=== PATIENT | female | born 1985 | race Caucasian/White ===

== ENCOUNTER 2020-11-25 13:04 | Observation (INO) | payer MEDICAID, OTHER ==
[~2020-11-25] VITALS: Ht 165.1 cm; Wt 100.0 kg
[~2020-11-25 13:04] MED LIST: NO HOME MEDS
[2020-11-25] MEDS ORDERED: morphine 4 MG/ML inj SYRINge IM ONE (13:55)
[2020-11-25] MEDS ORDERED: morphine 4 MG/ML inj SYRINge IV ONE (14:05)
[2020-11-25] MEDS ORDERED: ondansetron/PF 4mg/2ml inj IV ONE (15:05)
[2020-11-25] MEDS ORDERED: ondansetron/PF 4mg/2ml inj IV PRN (17:20)
[2020-11-25] MEDS ORDERED: diphenhydrAMINE 25mg capsule PO PRN ×2 (17:20)
[2020-11-25] MEDS ORDERED: HYDROmorphone 1 mg/ml syringe IV PRN (17:20)
[2020-11-25] MEDS ORDERED: acetaminophen 325mg tablet PO PRN ×2 (17:20→20:50)
[2020-11-25] MEDS ORDERED: magnesium hydroxide 30ml (MOM) UD suspension PO PRN (17:20)
[2020-11-25] MEDS ORDERED: HYDROmorphone inj. 0.5 MG/0.5 ML DISP.SYRIN IV PRN (17:20)
[2020-11-25] MEDS ORDERED: bisacodyl 10mg suppository rectal RC PRN (17:20)
[2020-11-25] MEDS ORDERED: HYDROcodone/acetaminophen 10/325mg tab PO PRN (17:20)
[2020-11-25 20:48] LABS: BASOPHILS % (AUTO) 0.2 % (0-1); EOSINOPHILS % (AUTO) 0 % (0-6); HEMATOCRIT 40.8 % (35.0-45.0); HEMOGLOBIN 13.4 g/dl (12.0-16.0); LYMPHOCYTES # (AUTO) 1.1 X10'3 (1.1-4.8); LYMPHOCYTES % (AUTO) 8.8 % (21-51); MEAN CORPUSCULAR HEMOGLOBIN 28.7 PG (27.0-31.0); MEAN CORPUSCULAR HGB CONC 32.8 g/dL (33.0-36.5); MEAN CORPUSCULAR VOLUME 87.4 FL (78-98); MEAN PLATELET VOLUME 8.2 FL (7.4-10.4); MONOCYTES # (AUTO) 0.6 X10'3 (0-0.9); MONOCYTES % (AUTO) 4.5 % (2-12); NEUTROPHILS # (AUTO) 11.1 X10'3 (1.8-7.7); NEUTROPHILS % (AUTO) 86.5 % (42-75); PLATELET COUNT 271 X10'3 (140-440); RED BLOOD COUNT 4.67 X10'6 (4.20-5.60); RED CELL DISTRIBUTION WIDTH 12.7 % (11.5-14.5); WHITE BLOOD COUNT 12.9 X10'3 (4.5-11.0)
[2020-11-25 21:01] LABS: ALANINE AMINOTRANSFERASE 19 U/L (12-78); ALBUMIN 3.9 G/DL (3.4-5.0); ALBUMIN/GLOBULIN RATIO 1.1 (1.1-1.5); ALKALINE PHOSPHATASE 61 IU/L (46-116); ANION GAP 8 (8-16); ASPARTATE AMINO TRANSFERASE 12 U/L (10-37); BILIRUBIN,TOTAL 0.7 MG/DL (0.1-1.0); BLOOD UREA NITROGEN 12 MG/DL (7-18); BUN/CREATININE RATIO 16.9 (6.6-38.0); CALCIUM 9.1 MG/DL (8.5-10.1); CHLORIDE 105 MMOL/L (99-107); CREATININE 0.71 MG/DL (0.40-0.90); GLUCOSE 111 MG/DL (70-104); SODIUM 141 MMOL/L (135-145); TOTAL CARBON DIOXIDE 27.6 MMOL/L (24-32); TOTAL PROTEIN 7.4 G/DL (6.4-8.2); eGFR > 90 ML/MIN
[2020-11-25 21:05] VITALS: BP 142/91
--- NOTE | 2020-11-25 21:40 | NUR ---
PATIENT ADMITTED TO ROOM 354C FROM ER FOR FRACTURE OF RIGHT ELBOW. PLACED COMFORTABLE IN BED. VITAL SIGNS TAKEN AND RECORDED.
[2020-11-25] MEDS: potassium cl 20mEq in 1/2 NS 1,000 ML IV SCH (21:54)
[2020-11-25] MEDS: ascorbic acid 500mg tablet PO SCH (22:00)
[2020-11-25] MEDS: sennosides 8.6mg tablet PO SCH (22:00)
[2020-11-26] VITALS (16 sets, daily range): BP systolic 105–148; BP diastolic 62–85
[2020-11-26] MEDS: potassium cl 20mEq in 1/2 NS 1,000 ML IV SCH ×3 (01:20→21:01)
[2020-11-26] MEDS: HYDROcodone/acetaminophen 10/325mg tab PO PRN ×2 (03:33→09:31)
[2020-11-26 06:12] LABS: BASOPHILS % (AUTO) 0.2 % (0-1); EOSINOPHILS % (AUTO) 0.3 % (0-6); HEMATOCRIT 38.4 % (35.0-45.0); HEMOGLOBIN 12.7 g/dl (12.0-16.0); LYMPHOCYTES # (AUTO) 1.6 X10'3 (1.1-4.8); LYMPHOCYTES % (AUTO) 13.7 % (21-51); MEAN CORPUSCULAR HEMOGLOBIN 29.1 PG (27.0-31.0); MEAN CORPUSCULAR HGB CONC 33.2 g/dL (33.0-36.5); MEAN CORPUSCULAR VOLUME 87.8 FL (78-98); MEAN PLATELET VOLUME 8.5 FL (7.4-10.4); MONOCYTES # (AUTO) 0.9 X10'3 (0-0.9); MONOCYTES % (AUTO) 8.1 % (2-12); NEUTROPHILS # (AUTO) 8.9 X10'3 (1.8-7.7); NEUTROPHILS % (AUTO) 77.7 % (42-75); PLATELET COUNT 243 X10'3 (140-440); RED BLOOD COUNT 4.37 X10'6 (4.20-5.60); RED CELL DISTRIBUTION WIDTH 13.1 % (11.5-14.5); WHITE BLOOD COUNT 11.5 X10'3 (4.5-11.0)
--- NOTE | 2020-11-26 06:30 | NUR ---
Problems reprioritized. Patient report given, questions answered & plan of care reviewed with DON TAVARES.
[2020-11-26 06:35] LABS: ALANINE AMINOTRANSFERASE 20 U/L (12-78); ALBUMIN 3.6 G/DL (3.4-5.0); ALBUMIN/GLOBULIN RATIO 1.1 (1.1-1.5); ALKALINE PHOSPHATASE 58 IU/L (46-116); ANION GAP 11 (8-16); ASPARTATE AMINO TRANSFERASE 11 U/L (10-37); BILIRUBIN,TOTAL 0.8 MG/DL (0.1-1.0); BLOOD UREA NITROGEN 9 MG/DL (7-18); BUN/CREATININE RATIO 12.9 (6.6-38.0); CALCIUM 8.8 MG/DL (8.5-10.1); CHLORIDE 105 MMOL/L (99-107); GLUCOSE 102 MG/DL (70-104); POTASSIUM 3.4 MMOL/L (3.5-5.1); SODIUM 142 MMOL/L (135-145); TOTAL CARBON DIOXIDE 26.3 MMOL/L (24-32); TOTAL PROTEIN 6.9 G/DL (6.4-8.2); eGFR > 90 ML/MIN
[2020-11-26 07:14] LABS: URINE HCG NEGATIVE (NEG)
--- NOTE | 2020-11-26 07:36 | NUR ---
I called Dr. Marisela Subramanian if he wants preop antibiotic because patient is going to surgery today, patient has abrasions from fall and the WBC today 11.5. He agreed about patient needing preop antibiotic but he said he will take care of it.
[2020-11-26] MEDS: ascorbic acid 500mg tablet PO SCH ×2 (08:00→21:44)
[2020-11-26] MEDS: multivitamins, therapeutics tablet PO SCH (08:00)
[2020-11-26] MEDS ORDERED: morphine 2 MG/ML inj. syringe IV PRN ×2 (10:50→15:10)
[2020-11-26] MEDS ORDERED: morphine 5 MG/ML injection IV PRN (10:50)
[2020-11-26] MEDS ORDERED: proCHLORperazine 10 MG/2 ml inj IV PRN (15:10)
[2020-11-26] MEDS ORDERED: morphine 4 MG/ML inj SYRINge IV PRN (15:10)
[2020-11-26] MEDS ORDERED: meperidine/PF 25mg/ml syringe IV PRN ×3 (15:10)
[2020-11-26] MEDS ORDERED: ondansetron/PF 4mg/2ml inj IV PRN (15:10)
[2020-11-26] MEDS ORDERED: ringers solution, lacted 1,000 ML IV SCH (15:10)
[2020-11-26] MEDS ORDERED: MIDAZolam 1 MG/ML 5ML VIAL ONE (15:55)
[2020-11-26] MEDS ORDERED: fentaNYL/PF 50MCG/1 ML 2ML syringe ONE (15:55)
[2020-11-26] MEDS ORDERED: ROPIVAcaine 0.5% (5mg/ml) 30ml vial ONE (15:55)
[2020-11-26] MEDS ORDERED: dexamethasone sod phosphate 10mg/ml inj ONE (16:02)
[2020-11-26] MEDS ORDERED: ondansetron/PF 4mg/2ml inj ONE (16:02)
[2020-11-26] MEDS ORDERED: LIDOcaine 1%/PF 5ML 10 MG/ML VIAL ONE (16:02)
[2020-11-26] MEDS ORDERED: sevoflurane 250ml liquid IH ONE (16:02)
[2020-11-26] MEDS ORDERED: propofol 10mg/ml 20ml vial IV ONE (16:02)
[2020-11-26] MEDS ORDERED: ceFAZolin 1000mg inj ONE ×2 (17:40)
--- NOTE | 2020-11-26 18:08 | NUR ---
Received from OR via , accompanied by Anesthesiologist DR MAYO and report given by Anesthesiolgist. AWAKENS TO VOICE. VITALS STABLE. DRESSING/CAST CDI. FINGERS WARM AND PINK. JORDAN PAIN. RUE IN A SIMPLE SLING.
--- NOTE | 2020-11-26 18:29 | NUR ---
Problems reprioritized. Patient report given, questions answered & plan of care reviewed with Maggie TAVARES.
--- NOTE | 2020-11-26 18:35 | NUR ---
Patient in room [facility]. I have received report from DON TAVARES and had the opportunity to ask questions and assume patient care. Addendum: 11/26/20 at 1838 by Zeinab Carroll RN PATIENT STILL IN OR/RECOVERY FOR SCHEDULED ORIF TO RIGHT ELBOW FRACTURE BY DR. MORA. Addendum: 11/26/20 at 1840 by Zeinab Carroll RN WRONG ENTRY
--- NOTE | 2020-11-26 18:52 | NUR ---
RECEIVED REPORT FROM [employer].
--- NOTE | 2020-11-26 18:58 | NUR ---
Report called to receiving nurse. Transferred via BED Belongings . Special Issues communicated to receiving nurse. AWAKE AND ORIENTED. VITALS STABLE. CAST DI. JORDAN PAIN. TO SURGICAL RM 354C AT THIS TIME.
--- NOTE | 2020-11-26 19:05 | NUR ---
PATIENT CAME BACK TO ROOM 354C FROM RECOVERY ROOM AFTER ORIF OF RIGHT ELBOW WAS DONE BY DR. MORA. PLACED COMFORTABLE IN BED. VITAL SIGNS MONITORED.
[2020-11-26] MEDS: sennosides 8.6mg tablet PO SCH (21:44)
[2020-11-27] VITALS: BP 123/79
[2020-11-27] MEDS ORDERED: cefazolin/dext.iso 2gm/100ml 100 ML IV SCH
--- NOTE | 2020-11-27 | NUR ---
PATIENT REFUSED TO HAVE NEW PIV RESTARTED. CALLED DR. MORA WITH ORDER TO CHANGE IV ABT TO ORAL KEFLEX.
[2020-11-27] MEDS: potassium cl 20mEq in 1/2 NS 1,000 ML IV SCH ×2 (01:20→09:20)
[2020-11-27] MEDS: cephalexin 500mg capsule PO SCH ×3 (01:53→13:27)
--- NOTE | 2020-11-27 06:30 | NUR ---
Problems reprioritized. Patient report given, questions answered & plan of care reviewed with HEAVEN TAVARES.
--- NOTE | 2020-11-27 06:40 | NUR ---
Patient in room [facility]. I have received report from Michelle Martinez RN and had the opportunity to ask questions and assume patient care.
[2020-11-27 06:51] LABS: BASOPHILS % (AUTO) 0.2 % (0-1); EOSINOPHILS % (AUTO) 0 % (0-6); HEMATOCRIT 39.3 % (35.0-45.0); HEMOGLOBIN 13.1 g/dl (12.0-16.0); LYMPHOCYTES % (AUTO) 7.9 % (21-51); MEAN CORPUSCULAR HEMOGLOBIN 29.3 PG (27.0-31.0); MEAN CORPUSCULAR HGB CONC 33.2 g/dL (33.0-36.5); MEAN CORPUSCULAR VOLUME 88.2 FL (78-98); MEAN PLATELET VOLUME 8.3 FL (7.4-10.4); MONOCYTES # (AUTO) 0.9 X10'3 (0-0.9); MONOCYTES % (AUTO) 7.1 % (2-12); NEUTROPHILS # (AUTO) 10.3 X10'3 (1.8-7.7); NEUTROPHILS % (AUTO) 84.8 % (42-75); PLATELET COUNT 264 X10'3 (140-440); RED BLOOD COUNT 4.45 X10'6 (4.20-5.60); RED CELL DISTRIBUTION WIDTH 13.1 % (11.5-14.5); WHITE BLOOD COUNT 12.1 X10'3 (4.5-11.0)
[2020-11-27 07:00] VITALS: BP 113/79
[2020-11-27] MEDS: multivitamins, therapeutics tablet PO SCH (07:17)
[2020-11-27] MEDS: ascorbic acid 500mg tablet PO SCH (07:17)
[2020-11-27] MEDS: HYDROcodone/acetaminophen 10/325mg tab PO PRN (07:18)
[2020-11-27 07:35] LABS: ALANINE AMINOTRANSFERASE 60 U/L (12-78); ALBUMIN 3.6 G/DL (3.4-5.0); ALKALINE PHOSPHATASE 70 IU/L (46-116); ANION GAP 10 (8-16); ASPARTATE AMINO TRANSFERASE 49 U/L (10-37); BILIRUBIN,TOTAL 0.6 MG/DL (0.1-1.0); BLOOD UREA NITROGEN 7 MG/DL (7-18); CHLORIDE 106 MMOL/L (99-107); GLUCOSE 109 MG/DL (70-104); POTASSIUM 3.9 MMOL/L (3.5-5.1); SODIUM 143 MMOL/L (135-145); TOTAL CARBON DIOXIDE 27.5 MMOL/L (24-32); TOTAL PROTEIN 7.2 G/DL (6.4-8.2); eGFR > 90 ML/MIN
[2020-11-27 11:00] VITALS: BP 124/74
[2020-11-27] MEDS ORDERED: MULT-25 PO (12:35)
[2020-11-27] MEDS ORDERED: HYDR-3972 PO (12:35)
[2020-11-27] MEDS ORDERED: VITC500T PO (12:35)
[2020-11-27] MEDS ORDERED: SENN-173 PO (12:35)
--- NOTE | 2020-11-27 15:00 | NUR ---
patient seen by Dr Jacobsen and DR Khan, able to tolerate regular food and ambulated 900ft. Percocet for pain with mod effect. patient is for discharge all discharge instructions given to patient. Patient DC home with friend via private car in stable condition. Addendum: 11/27/20 at 1502 by Bertha Monaco RN wrong patient
--- NOTE | 2020-11-27 15:04 | NUR ---
patient was seen by DR Dori Subramanian, and Shayy Serrano. worked with PT. [place] given for pain x2 with effect. Patient tolerated reg diet and work that was done with PT see note. patient is for discharge icepacks and wound care provided. All DC instructions given Patient DC home via private wcar with friend in stable condition sling in place and dressing CDI to right elbow
== END 2020-11-27 15:00 | disposition home or self-care (01) ==
LOC: ER 13:05 → ED HOLD 17:18 → SUR 3N 20:59
PROVIDERS: ADMIT Orthopaedic Surgery; ATTEND Orthopaedic Surgery
DX: S52.121A Displaced fracture of head of right radius, initial encounter for closed fracture (principal); Z20.822 Contact with and (suspected) exposure to COVID-19; S42.401A Unspecified fracture of lower end of right humerus, initial encounter for closed fracture; Z88.5 Allergy status to narcotic agent; V00.141A Fall from scooter (nonmotorized), initial encounter; Y93.55 Activity, bike riding; Y92.410 Unspecified street and highway as the place of occurrence of the external cause
CPT/HCPCS: 24665; 36415; 73020; 73030; 73070; 73080; 73100; 73200; 80053; 81025; 82948; 85025; 87081; 87426; 96361; 96374; 96375; 96376; 97116; 97162; 97530; 99285; A6222; C1713; G0378; J0690; J1100; J1170; J2250; J2270; J2405; J2704; J3010; J7120; 76000; A4565; A4618; A6449; A7000; J2795; J3480

== ENCOUNTER 2024-01-17 20:00 | Emergency (ER) | payer MEDICAID ==
[~2024-01-17] VITALS: Ht 165.1 cm; Wt 106.8 kg
[~2024-01-17 20:00] MED LIST changes: +HYDR-3972 PO; +MULT-25 PO; +SENN-362 PO; +VITC500T PO
[2024-01-17 20:10] VITALS: BP 167/115; PULSE 85; RESP 19; TEMP 98.3; O2SAT 95
== END 2024-01-17 23:40 | disposition left against medical advice (07) ==
LOC: ER 20:03
DX: R42 Dizziness and giddiness (principal); R51.9 Headache, unspecified; R07.89 Other chest pain; Z53.21 Procedure and treatment not carried out due to patient leaving prior to being seen by health care provider
CPT/HCPCS: 93005

== ENCOUNTER 2024-02-16 08:19 | Outpatient (CLI) | payer MEDICAID | END 2024-02-16 23:59 | disposition home or self-care (01) | LOC: MRI 08:19 | PROVIDERS: ATTEND Nurse Practitioner | DX: R93.0 Abnormal findings on diagnostic imaging of skull and head, not elsewhere classified (principal) | CPT/HCPCS: 70544 ==

== ENCOUNTER 2024-08-10 09:12 | Emergency (ER) | payer MEDICAID ==
[~2024-08-10] VITALS: Ht 165.1 cm; Wt 110.0 kg
[2024-08-10 09:21] VITALS: BP 155/92; PULSE 83; RESP 16; TEMP 96.1; O2SAT 97
[2024-08-10] MEDS ORDERED: HYDR-3686 PO (10:04)
== END 2024-08-10 10:14 | disposition home or self-care (01) ==
LOC: ER 09:13
DX: S21.001A Unspecified open wound of right breast, initial encounter (principal); L08.9 Local infection of the skin and subcutaneous tissue, unspecified; Z88.5 Allergy status to narcotic agent; Z22.322 Carrier or suspected carrier of Methicillin resistant Staphylococcus aureus; X58.XXXA Exposure to other specified factors, initial encounter; Y93.89 Activity, other specified; Y92.89 Other specified places as the place of occurrence of the external cause; Y99.8 Other external cause status
CPT/HCPCS: 99283